=== PATIENT | male | born 1940 | race Caucasian/White ===

== ENCOUNTER 2017-09-28 15:52 | Outpatient (CLI) | payer BC, MEDICARE ==
--- NOTE | 2017-09-28 17:01 | RAD ---
TWO VIEWS OF THE LEFT KNEE: 09/28/17 COMPARISON: None. HISTORY: Left knee pain that is worsening in the patellar region. FINDINGS: Two views of the left knee shows no evidence of acute fracture or dislocation. No knee effusion is se en. No significant degenerative changes are seen. IMPRESSION: Unremarkable exam. POS: [facility]
--- NOTE | 2017-09-28 17:12 | RAD ---
THREE VIEWS OF THE LEFT SHOULDER 09/28/17 COMPARISON: None. HISTORY: Shoulder pain for many years. FINDINGS: Three views of the left shoulder shows remodeling of the clavicle likely secondary to remote healed f racture. There is no evidence of acute fracture or dislocation. No significant degenerative change is see in the left shoulder. IMPRESSION: 1. No evidence of acute osseous abnormality. 2. Remote healed left clavicle fracture. POS: [facility]
== END 2017-09-28 15:53 | disposition home or self-care (01) ==
LOC: SCSRAD 15:52
PROVIDERS: ATTEND Physical Medicine & Rehabilitation
DX: M25.562 Pain in left knee (principal); M25.512 Pain in left shoulder

== ENCOUNTER 2017-11-22 14:42 | Outpatient (CLI) | payer BC, MEDICARE ==
--- NOTE | 2017-11-22 16:55 | MRI ---
CERVICAL SPINE MRI WITHOUT CONTRAST: HISTORY: Neck pain, radiating to the shoulders. COMPARISON: None. TECHNIQUE: Cervical spine MRI is performed without intravenous Gadolinium administration. Multisequential, mult iplanar imaging is performed. FINDINGS: There is 5 mm of anterolisthesis of C4 upon C5. There is degenerative disk disease with loss of disk space height and osteophyte formation at C4-C5, C5-C6, C6-C7, and C7-T1. There is severe loss of di sk space height at C7-T1. There are type I modic changes with associated edema on the sagittal STIR sequence. The visualized brain parenchyma, cervicomedullary junction, cervical cord, and upper thoracic cord whaley ve overall normal size and signal intensity. C2-C3: No significant disk osteophyte complex. No significant central canal stenosis. The neural f oramina are patent bilaterally. C3-C4: Broad-based disk osteophyte complex abuts the thecal sac. Ventral CSF signal intensity is ma intained. No significant central canal stenosis. Degenerative changes of the bilateral uncovertebra l joints results in moderate right and moderate to severe left neural foraminal narrowing. There is bilateral facet hypertrophy. C4-C5: Broad-based disk osteophyte complex abuts the thecal sac. Ventral subarachnoid space is effa gagan. [id number], there is no significant mass effect upon the cervical cord. No T2 hyperintensi ty in the cord. Degenerative changes in the bilateral uncovertebral joints results in moderate bilat eral foraminal narrowing. There is right greater than left facet hypertrophy. C5-C6: Broad-based disk osteophyte complex abuts the thecal sac. Ventral CSF signal intensity is ma intained. Mild central canal stenosis. Degenerative changes in the bilateral uncovertebral joints r esults in moderate to severe right and severe left neural foraminal narrowing. C6-C7: There is a central/left paracentral disk osteophyte complex. There is mild mass effect on th e left hemicord. Mild central canal stenosis. The right neural foramen is mildly narrowed. Mild to moderate left foraminal narrowing. C7-T1: Broad-based disk osteophyte complex without significant central canal stenosis. Mild bilater al foraminal narrowing. IMPRESSION: 1. Extensive degenerative changes in the cervical spine, as above. There is grade 1 anterolisthesis of C4 upon C5. 2. Significant neural foraminal narrowing at multiple levels, as described above. POS: [facility]
== END 2017-11-22 14:43 | disposition home or self-care (01) ==
LOC: SCSMRI 14:42
PROVIDERS: ATTEND Neurological Surgery
DX: M47.12 Other spondylosis with myelopathy, cervical region (principal); M43.12 Spondylolisthesis, cervical region; M99.81 Other biomechanical lesions of cervical region
CPT/HCPCS: 72141

== ENCOUNTER 2018-05-15 01:14 | Outpatient (CLI) | payer BC, MEDICARE ==
[2018-05-15 11:43] LABS: Hemoglobin 12.3 g/dL (14.0-18.0); Mean Corpuscular HGB CONC 31.8 g/dL (32.0-36.0); Mean Corpuscular Hemoglobin 26.5 pg (27.0-31.0); Mean Corpuscular Volume 83.2 fL (78.0-98.0); Mean Platelet Volume 8.4 fL (7.4-10.4); Platelet Count 233 thou/uL (130-400); RBC Distribution Width 13.2 % (11.5-14.5); Red Blood Cell (RBC) Count 4.66 mill/uL (4.70-6.10); White Blood Cell (WBC) Count 6.6 thou/uL (4.8-10.8)
[2018-05-15 12:12] LABS: Anion Gap 12 mmol/L (10-20); BUN (Urea Nitrogen) 24 mg/dL (8.4-25.7); Calc. Creatinine Clearance 0 mL/min (70-130); Calcium 9.2 mg/dL (7.8-10.44); Carbon Dioxide 29 mmol/L (23-31); Chloride 102 mmol/L (98-107); Estimated GFR-MDRD 64; Glucose 104 mg/dL (83-110); Potassium 4.3 mmol/L (3.5-5.1); Sodium 139 mmol/L (136-145)
== END 2018-05-15 01:15 | disposition home or self-care (01) ==
LOC: LABBT 01:14
PROVIDERS: ATTEND Neurological Surgery
DX: Z01.812 Encounter for preprocedural laboratory examination (principal); M43.12 Spondylolisthesis, cervical region
CPT/HCPCS: 80048; 85027

== ENCOUNTER 2018-05-16 06:27 | Day surgery (SDC) | payer BC, MEDICARE ==
[2018-05-15 10:46] VITALS: BMI 23.7
--- NOTE | 2018-05-16 11:13 | OP ---
DATE OF PROCEDURE: 05/16/2018 [employer] OPERATOR: Shawn Bartlett PA-C PROCEDURE PERFORMED: 1. Anterior cervical diskectomy at C4-C5 interbody arthrodesis. 2. Intervertebral biomechanical device. 3. Local morselized autograft. 4. Demineralized bone matrix. 5. Anterior titanium instrumentation C4-C5. DESCRIPTION OF PROCEDURE: The patient was brought to the operating room and intubated. He was positioned supine in modest extension on a gel-filled donut. An incision made in the right precervical area and dissecting medial to the sternocleidomastoid muscle, identified the anterior cervical spinal, and the level was confirmed by x-ray. We debrided the anterior osteophytes, placed distraction across the disk space and found the disk space to be largely auto fused. We debrided the disk material using combination of a drill and Kerrisons, creating space within the disk space. We could not however mobilize C4 and C5. The bony endplates were then decorticated for the purpose of arthrodesis and appropriate-sized intervertebral biomechanical PEEK device was brought in the field and filled with demineralized bone matrix, local morselized autograft, and tapped in place securely at C4-C5. Next an anterior plate was brought into the field and secured to C4 and C5 using two 14-mm screws at each level. Wound was then extensively irrigated. Maximum hemostasis was secured. The wound was closed in anatomic layers. Job ID: [id number]
[2018-05-16] MEDS ORDERED: Tamsulosin HCl 0.4 MG CAP ONE (12:26)
[2018-05-16] MEDS ORDERED: Ketorolac Tromethamine 30 MG/ML VIAL ONE (13:59)
[2018-05-16] MEDS ORDERED: Rocuronium Bromide 10 MG/ML (10ML VIAL) ONE (13:59)
[2018-05-16] MEDS ORDERED: ePHEDrine 50 MG/ML VIAL ONE (13:59)
[2018-05-16] MEDS ORDERED: PROPOFOL 200 MG/20 ML VIAL ONE (13:59)
[2018-05-16] MEDS ORDERED: Glycopyrrolate 0.2 MG/ML 5 ML SYRINGE ONE (13:59)
[2018-05-16] MEDS ORDERED: PHENYLEPHRINE-NS 100 MCG/ML 10 ML SYRINGE ONE (13:59)
[2018-05-16] MEDS ORDERED: Lidocaine 1% PF 5 ML VIAL ONE (13:59)
[2018-05-16] MEDS ORDERED: Ondansetron PF 4 MG/2 ML Vial ONE (13:59)
[2018-05-16] MEDS ORDERED: Dexamethasone 20 MG/5 ML VIAL ONE (13:59)
== END 2018-05-16 15:20 | disposition home or self-care (01) ==
LOC: SDC 06:27
PROVIDERS: ATTEND Neurological Surgery
PROC: 0RG10A0 Fusion of Cervical Vertebral Joint with Interbody Fusion Device, Anterior Approach, Anterior Column, Open Approach (ICD-10-PCS; principal; 2018-05-16)
PROC: 0RT30ZZ Resection of Cervical Vertebral Disc, Open Approach (ICD-10-PCS; principal; 2018-05-16)
DX: M47.12 Other spondylosis with myelopathy, cervical region (principal); E78.5 Hyperlipidemia, unspecified; I25.10 Atherosclerotic heart disease of native coronary artery without angina pectoris; I10 Essential (primary) hypertension; I48.0 Paroxysmal atrial fibrillation; M19.90 Unspecified osteoarthritis, unspecified site; E03.9 Hypothyroidism, unspecified; I25.5 Ischemic cardiomyopathy; Z87.891 Personal history of nicotine dependence; Z79.82 Long term (current) use of aspirin; Z79.899 Other long term (current) drug therapy
CPT/HCPCS: 76000; C1713; C1768; C1776; J1100; J1885; J2001; J2405; J2704; J3490

== ENCOUNTER 2018-05-30 10:44 | Outpatient (CLI) | payer BC, MEDICARE ==
--- NOTE | 2018-05-30 11:34 | RAD ---
CERVICAL SPINE THREE VIEWS: History: Post op follow up. Spondylolisthesis and spondylosis with neck pain. Comparison: MRI 11-22-17 FINDINGS: Post op changes are noted with anterior plate and screws transfixing C4-5. There is anterolisthesis a t C4-5 measured at approximately 4 mm. Interbody implant is present. Anterior wedging of the C3, C4, C5, C6, and C7 vertebra noted with anterior osteophytes. Alignment appears otherwise preserved. IMPRESSION: Post-operative changes at C4-5. Anterolisthesis is noted at C4-5. There are degenerative changes as d escribed. POS: [facility]
== END 2018-05-30 10:45 | disposition home or self-care (01) ==
LOC: TBSIIMAG 10:44
PROVIDERS: ATTEND Neurological Surgery
DX: M43.12 Spondylolisthesis, cervical region (principal); M47.812 Spondylosis without myelopathy or radiculopathy, cervical region; Z98.890 Other specified postprocedural states
CPT/HCPCS: 72040

== ENCOUNTER 2018-06-08 13:46 | Outpatient (CLI) | payer BC, MEDICARE ==
[~2018-06-08 13:46] MED LIST: Iopamidol 370 76% 100 ML VIAL ONE
--- NOTE | 2018-06-08 15:37 | CT ---
FExam: Abdomen CT with and without contrast Pelvic CT with and without contrast HISTORY: Gross hematuria COMPARISON: 07/19/2010 TECHNIQUE: Abdomen and pelvic CT is performed with and without contrast following urogram protocol. C oronal reformatted images are submitted for interpretation FINDINGS: Lung bases: Dependent atelectatic changes normal heart size. Coronary calcifications and calcificatio n aortic valve are noted Liver: Appropriate enhancement. No enhancing masses. Spleen: Appropriate enhancement Pancreas: Appropriate enhancement. Mild atrophy of the head and the body of the pancreas. Adrenal glands: Symmetric enhancement Lymph nodes: No gastrohepatic, retrocrural or periportal lymphadenopathy. Portal vein: Patent Gallbladder: CT evidence of cholelithiasis without definite evidence of cholecystitis. Kidneys: Symmetric arterial phase and 4 minute delay image enhancement of the renal cortices. Bilater al renal cortical hypodensities are once again demonstrated. Right renal cyst measure 4.3 x 4.3 cm. L eft renal cyst measures 3.9 x 4.7 cm. A larger more exophytic cysts measures 4.6 x 5.9 cm. A punctate peripheral calcifications identified. There is symmetric excretion into a decompressed intra and ext rarenal collecting system. Mesentery: No mass, nephropathy, free air or free fluid Vessels: Atherosclerosis of a nonaneurysmal aorta. IVC filter is noted. Alimentary canal: Limited evaluation due to lack of oral contrast administration. No evidence of cecilia l obstruction. The ileocecal junction is normal. Normal caliber appendix scattered fecal material in a nondistended, nondilated colon. Sigmoid colon diverticulosis, without evidence of diverticulitis. CT PELVIS: Contrast in the dependent portion of the unremarkable urinary bladder. Prostate gland is d ifficult to appreciate. Correlate for previous prostatectomy. No pelvic mass, lymphadenopathy, free a ir or free fluid. No lytic or blastic lesions in the osseous structures. Lumbar fusion hardware is identified. Chronic moderate compression fracture at T12. IMPRESSION: 1. No evidence of obstructive uropathy. 2. Renal cortical hypodensities, favored to be renal cysts. Stable calcification associated with a ex ophytic cyst emanating from the midpole the left kidney. 3. No obvious masses or lymphadenopathy in the pelvis. 4. CT evidence of cholelithiasis without evidence of cholestasis. 5. Diverticulosis, without evidence of diverticulitis.
== END 2018-06-08 13:47 | disposition home or self-care (01) ==
LOC: SCSCT 13:46
PROVIDERS: ATTEND Urology
DX: R31.0 Gross hematuria (principal); K80.20 Calculus of gallbladder without cholecystitis without obstruction; K57.90 Diverticulosis of intestine, part unspecified, without perforation or abscess without bleeding; N28.89 Other specified disorders of kidney and ureter
CPT/HCPCS: 74178; Q9967

== ENCOUNTER 2018-07-12 14:15 | Outpatient (CLI) | payer BC, MEDICARE ==
--- NOTE | 2018-07-12 14:33 | RAD ---
Exam: Cervical spine 3 views: HISTORY: Follow-up surgery COMPARISON: 05/30/2018. FINDINGS: Anterior cervical fusion changes at C4-C5 with stable anterolisthesis. Heterogeneous bony demineraliz ation. Generalized spondylosis. Fusion changes of the posterior elements of C2, C3, and C4 regions. IMPRESSION: Stable anterior cervical fusion changes at C4-C5 and stable anterolisthesis.
== END 2018-07-12 14:16 | disposition home or self-care (01) ==
LOC: TBSIIMAG 14:15
PROVIDERS: ATTEND Neurological Surgery
DX: M47.12 Other spondylosis with myelopathy, cervical region (principal); M43.12 Spondylolisthesis, cervical region; Z98.1 Arthrodesis status
CPT/HCPCS: 72040

== ENCOUNTER 2018-10-10 15:03 | Emergency (ER) | payer BC, MEDICARE | END 2018-10-10 16:00 | disposition home or self-care (01) | LOC: SCSER 15:03 | DX: F41.9 Anxiety disorder, unspecified (principal); I10 Essential (primary) hypertension; Z79.82 Long term (current) use of aspirin; Z79.899 Other long term (current) drug therapy | CPT/HCPCS: 99283 ==

== ENCOUNTER 2019-12-19 11:13 | Outpatient (CLI) | payer BC, MEDICARE | END 2019-12-19 11:14 | disposition home or self-care (01) | LOC: CTENTCT 11:13 | PROVIDERS: ATTEND Otolaryngology Plastic Surgery within the Head & Neck | DX: J32.9 Chronic sinusitis, unspecified (principal) | CPT/HCPCS: 70486 ==

== ENCOUNTER 2020-05-07 12:17 | Day surgery (SDC) | payer MEDICARE ==
[2020-05-06 12:32] VITALS: BMI 25.2
[~2020-05-07 12:17] MED LIST changes: +FLU VACC QS2020-21(65YR UP)/PF 240 MCG/0.7 ML SYRINGE IM ONE; -Iopamidol 370 76% 100 ML VIAL ONE
[2020-05-07] MEDS ORDERED: Lidocaine 1% PF 5 ML VIAL ONE (12:28)
[2020-05-07] MEDS ORDERED: Sodium Bicarbonate 2.5 MEQ/5 ML VIAL ONE (12:28)
[2020-05-07 13:02] LABS: #Basophils 0.1 thou/uL (0.0-0.2); #Eosinphils 0.2 thou/uL (0.0-0.7); #Lymphocytes 1.3 thou/uL (1.20-3.40); #Monocytes 0.7 thou/uL (0.11-0.59); #Neutrophils 5.6 thou/uL (1.40-6.50); %Basophils 0.8 % (0.0-1.0); %Lymphocytes 16.6 % (21.0-51.0); %Monocytes 8.9 % (0.0-10.0); %Neutrophils 71.7 % (42.0-75.0); Hemoglobin 11.7 g/dL (14.0-18.0); Mean Corpuscular HGB CONC 31.5 g/dL (32.0-36.0); Mean Corpuscular Volume 82.7 fL (78.0-98.0); Mean Platelet Volume 8.3 fL (7.4-10.4); Platelet Count 253 thou/uL (130-400); RBC Distribution Width 14.1 % (11.5-14.5); Red Blood Cell (RBC) Count 4.49 mill/uL (4.70-6.10); White Blood Cell (WBC) Count 7.8 thou/uL (4.8-10.8)
[2020-05-07 13:13] LABS: INR-International Normal Ratio 1.1; Prothrombin Time 14.9 sec (12.0-14.7)
[2020-05-07 13:14] LABS: PTT 33.8 sec (22.9-36.1)
[2020-05-07 14:20] VITALS: BP 124/90; TEMP 98.1
--- NOTE | 2020-05-07 15:08 | ULT ---
Paracentesis sonographic guided HISTORY: Symptomatic ascites. FINDINGS: After explaining the procedure and answering all questions, sonographic survey showed a lar ge amount of free fluid throughout the abdomen. Sterile technique, buffered local anesthesia, sonographic guidance, and a right lateral approach were used to carefully advance a 19-gauge Yueh needle and catheter into the free fluid. Catheter was left to drain a total volume of 4.5 L clear light yellow liquid. Catheter was removed wi th small amount of fluid remaining. Patient tolerated the procedure well and was dismissed in good condition. IMPRESSION : Technically successful sonographic guided paracentesis 4.5 L.
== END 2020-05-07 14:00 | disposition home or self-care (01) ==
LOC: ULT 12:17
PROVIDERS: ATTEND Internal Medicine Hematology & Oncology
PROC: 0W9G3ZZ Drainage of Peritoneal Cavity, Percutaneous Approach (ICD-10-PCS; principal; 2020-05-07)
DX: R18.8 Other ascites (principal); C49.4 Malignant neoplasm of connective and soft tissue of abdomen; M19.90 Unspecified osteoarthritis, unspecified site; I10 Essential (primary) hypertension; I25.10 Atherosclerotic heart disease of native coronary artery without angina pectoris; F32.9 Major depressive disorder, single episode, unspecified; G47.33 Obstructive sleep apnea (adult) (pediatric); E03.9 Hypothyroidism, unspecified; E78.5 Hyperlipidemia, unspecified; N40.0 Benign prostatic hyperplasia without lower urinary tract symptoms; Z79.82 Long term (current) use of aspirin; Z79.899 Other long term (current) drug therapy; Z95.5 Presence of coronary angioplasty implant and graft
CPT/HCPCS: 49083; 85025; 85610; 85730